=== PATIENT | male | born 1975 | race Caucasian/White ===

== ENCOUNTER 2023-09-01 15:36 | Emergency (ER) | payer SELFPAY ==
[~2023-09-01] VITALS: Ht 172.7 cm; Wt 73.0 kg
[2023-09-01 15:41] VITALS: BP 155/105; PULSE 86; RESP 16; TEMP 97.8; O2SAT 100
[2023-09-01] MEDS ORDERED: ONDANSETRON HCL 4MG/2ML INJ IV STA (15:44)
[2023-09-01] MEDS ORDERED: SODIUM CHLORIDE 0.9% 1,000 ML IV ONE (15:45)
== END 2023-09-01 16:25 | disposition left against medical advice (07) ==
LOC: ER 15:36
DX: F10.129 Alcohol abuse with intoxication, unspecified (principal); R07.9 Chest pain, unspecified; Y90.9 Presence of alcohol in blood, level not specified
CPT/HCPCS: 99283; 93005; J7030